=== PATIENT | female | born 1955 | race African-American/Black ===

== ENCOUNTER 2019-03-31 08:06 | Emergency (ER) | payer MEDICARE, OTHER ==
[~2019-03-31] VITALS: Ht 170.2 cm; Wt 106.6 kg
[~2019-03-31 08:06] MED LIST: ASPIRIN81 MG ORAL; FUROSEMIDE20 M1 ORAL; LOPRESSOR25 M1 ORAL; ZESTRIL10 MG ORAL
--- NOTE | 2019-03-31 08:15 | Emergency Room Report ---
History of Present Illness General Chief Complaint: Generalized Weakness Present Illness HPI 63-year-old female possible history of hypertension, hyperlipidemia, giant cell arteritis diagnosed by biopsy, presents with 2 days of weakness, headache, headache not sudden, gradual in onset, associated with her giant cell arteritis , she states all the symptoms started when she started taking Tocilizumab she denies any alleviating factors, no radiation of pain, she states the pain is all over her head. Patient states she does not know why she was transferred here, she states she want to go to [facility], she no longer wants to obtain care at [facility] she stated that she called 911 because she did not want to bother the other person in her household because he had to go to work. Patient denies any chest pain, shortness of breath, nausea vomiting, abdominal pain Allergies: Coded Allergies: No Known Allergies (Unverified , 12/16/13) Patient History Past Medical History: see triage record Reviewed Nursing Documentation: PMH: Agreed; PSxH: Agreed Nursing Documentation-PMH Hx Hypertension: Yes - multinodular goiter, DVT Hx Cancer: No Hx Gastrointestinal Problems: No Review of Systems Constitutional: Reports: weakness; Denies: chills, fever Eye: Denies: blurred vision, double vision ENT: Denies: throat pain, nasal discharge Respiratory: Denies: cough, shortness of breath Cardiovascular: Denies: chest pain, palpitations Gastrointestinal: Denies: abdominal pain, diarrhea, nausea, vomiting Genitourinary: Denies: pain Musculoskeletal: Reports: back pain; Denies: muscle pain Skin: Denies: rash, lesions Neurological: Reports: headache; Denies: focal weakness Hematologic/Lymphatic: Denies: easy bleeding, easy bruising All Other Systems: negative except mentioned in HPI Physical Exam Vital Signs Date Time Temp Pulse Resp B/P (MAP) Pulse Ox O2 Delivery O2 Flow Rate FiO2 03/31/19 07:57 98.4 77 18 133/87 (102) 100 Room Air Sp02 EP Interpretation: reviewed, normal General Appearance: well appearing, no apparent distress, alert Head: normocephalic, atraumatic Eyes: bilateral eye PERRL, bilateral eye EOMI ENT: uvula midline, moist mucus membranes Neck: supple, thyroid normal, supple/symm/no masses Respiratory: lungs clear, no respiratory distress, no retraction, no accessory muscle use Cardiovascular #1: normal peripheral pulses, regular rate, rhythm, no edema, no gallop, no murmur Gastrointestinal: non tender, soft, no guarding, no rebound Musculoskeletal: normal inspection Neurologic: alert, oriented x3 Psychiatric: mood/affect normal Skin: no rash, warm/dry Medical Decision Making Diagnostic Impression: Primary Impression: Episode of generalized weakness Additional Impression: Medication side effect ER Course 63-year-old female presents with generalized weakness after taking Tocilizumab, which is an infusion she started at [facility], will order diagnostic labs, EKG, chest x-ray, CT brain, to rule out acute pathology, patient most likely with a medication side effect as well as progression of her giant cell arteritis in which she needs to follow-up with rheumatology, patient states that she will follow-up with her slot floorperson at [facility], and has an appointment Patient states that she wants to be transported to [facility], she states she will see her slot floorperson there, patient counseled that we cannot do a hospital to hospital transfer for a chronic condition, patient currently has no acute processes occurring, patient has a negative CT brain, negative chest x-ray , return precautions were discussed Return precautions discussed Laboratory Tests Test 03/31/19 08:27 03/31/19 09:15 White Blood Count 6.2 K/UL (4.8-10.8) Red Blood Count 5.73 M/UL (4.20-5.40) H Hemoglobin 12.5 G/DL (12.0-16.0) Hematocrit 40.5 % (37.0-47.0) Mean Corpuscular Volume 71 FL (80-99) L Mean Corpuscular Hemoglobin 21.9 PG (27.0-31.0) L Mean Corpuscular Hemoglobin Concent 31.0 G/DL (32.0-36.0) L Red Cell Distribution Width 15.0 % (11.6-14.8) H Platelet Count 266 K/UL (150-450) Mean Platelet Volume 6.7 FL (6.5-10.1) Neutrophils (%) (Auto) 58.9 % (45.0-75.0) Lymphocytes (%) (Auto) 32.0 % (20.0-45.0) Monocytes (%) (Auto) 7.2 % (1.0-10.0) Eosinophils (%) (Auto) 0.9 % (0.0-3.0) Basophils (%) (Auto) 1.1 % (0.0-2.0) Sodium Level 143 MMOL/L (136-145) Potassium Level 3.7 MMOL/L (3.5-5.1) Chloride Level 107 MMOL/L (98-107) Carbon Dioxide Level 29 MMOL/L (21-32) Anion Gap 7 mmol/L (5-15) Blood Urea Nitrogen 16 mg/dL (7-18) Creatinine 1.1 MG/DL (0.55-1.30) Estimate Glomerular Filtration Rate > 60 mL/min (>60) Glucose Level 97 MG/DL (74-106) Calcium Level 9.2 MG/DL (8.5-10.1) Total Bilirubin 0.3 MG/DL (0.2-1.0) Aspartate Amino Transferase (AST) 26 U/L (15-37) Alanine Aminotransferase (ALT) 34 U/L (12-78) Alkaline Phosphatase 99 U/L (46-116) Total Creatine Kinase 74 U/L (26-308) Creatine Kinase MB < 0.5 NG/ML (0.0-3.6) Creatine Kinase MB Relative Index 0.6 Troponin I 0.000 ng/mL (0.000-0.056) Total Protein 7.1 G/DL (6.4-8.2) Albumin 3.4 G/DL (3.4-5.0) Globulin 3.7 g/dL Albumin/Globulin Ratio 0.9 (1.0-2.7) L Urine Color Pale yellow Urine Appearance Clear Urine pH 6.5 (4.5-8.0) Urine Specific [place] 1.010 (1.005-1.035) Urine Protein Negative (NEGATIVE) Urine Glucose (UA) Negative (NEGATIVE) Urine Ketones Negative (NEGATIVE) Urine Blood Negative (NEGATIVE) Urine Nitrite Negative (NEGATIVE) Urine Bilirubin Negative (NEGATIVE) Urine Urobilinogen Normal MG/DL (0.0-1.0) Urine Leukocyte Esterase 2+ (NEGATIVE) H Urine RBC 0-2 /HPF (0 - 2) Urine WBC 2-4 /HPF (0 - 2) Urine Squamous Epithelial Cells Few /LPF (NONE/OCC) Urine Bacteria Occasional /HPF (NONE) Urine Mucus Few /LPF (NONE/OCC) H EKG Diagnostic Results EKG Time: 08:14 EP Interpretation: Normal sinus rhythm, QTC 466, no acute ST elevations, normal axis Rate: normal Rhythm: NSR ST Segments: no acute changes Chest X-Ray Diagnostic Results Chest X-Ray Diagnostic Results : Chest X-Ray Ordered: Yes # of Views/Limited/Complete: 1 View Indication: Other - Weakness EP Interpretation: Yes Interpretation: no consolidation, no acute cardiopulmonary disease, other - slight loss of the left costophrenic angle Impression: No acute disease Last Vital Signs Date Time Temp Pulse Resp B/P (MAP) Pulse Ox O2 Delivery O2 Flow Rate FiO2 03/31/19 07:57 98.4 77 18 133/87 (102) 100 Room Air Disposition: HOME, SELF-CARE Condition: Stable Referrals: [facility] Patient Instructions: Weakness Additional Instructions: The patient was provided with discharge instructions, notified to follow-up with a primary care doctor and or specialist in the next 24-48 hours, and to return to the ED if they have worsening of their symptoms. Please note that this report is being documented using [email or web address] technology. This can lead to erroneous entry secondary to incorrect interpretation by the dictating instrument. Andrey Burciaga M.D. Mar 31, 2019 08:15
--- NOTE | 2019-03-31 08:20 | NUR ---
ED Nurse Note:pt. was BIBA from home with c/o headache and general weakness, pt. is A/Ox4 ambulatory, VSS, blood was sent to labs, pt. was given oral fluids and CT head done
[2019-03-31] MEDS ORDERED: FOSAMAX70 MG ORAL (08:25)
[2019-03-31] MEDS ORDERED: CARVEDILOL12.5 MG ORAL (08:25)
[2019-03-31] MEDS ORDERED: PANTOPRAZOLE SO40 MG ORAL (08:25)
[2019-03-31] MEDS ORDERED: XARELTO10 MG ORAL (08:25)
[2019-03-31] MEDS ORDERED: SPIRONOLACTONE100 MG ORAL (08:25)
[2019-03-31] MEDS ORDERED: ATORVASTATIN CA40 MG ORAL (08:25)
[2019-03-31] MEDS ORDERED: PREDNISONE10 MG ORAL (08:25)
[2019-03-31 08:33] VITALS: BP 133/87
[2019-03-31 08:40] LABS: BASOPHILS % (AUTO) 1.1 % (0.0-2.0); EOSINOPHILS % (AUTO) 0.9 % (0.0-3.0); HEMATOCRIT 40.5 % (37.0-47.0); HEMOGLOBIN 12.5 G/DL (12.0-16.0); MEAN CORPUSCULAR VOLUME 71 FL (80-99); MONOCYTES % (AUTO) 7.2 % (1.0-10.0); NEUTROPHILS % (AUTO) 58.9 % (45.0-75.0); PLATELET COUNT 266 K/UL (150-450); RED BLOOD COUNT 5.73 M/UL (4.20-5.40); WHITE BLOOD COUNT 6.2 K/UL (4.8-10.8)
[2019-03-31 08:52] LABS: ANION GAP 7 mmol/L (5-15); BLOOD UREA NITROGEN 16 mg/dL (7-18); CALCIUM 9.2 MG/DL (8.5-10.1); CARBON DIOXIDE 29 MMOL/L (21-32); CHLORIDE 107 MMOL/L (98-107); CREATININE 1.1 MG/DL (0.55-1.30); POTASSIUM 3.7 MMOL/L (3.5-5.1); SODIUM 143 MMOL/L (136-145)
--- NOTE | 2019-03-31 09:16 | Diagnostic Imaging Report ---
Indication: Headache Technique: Contiguous 5 mm thick transaxial imaging of the head obtained in a Siemens Sensation [address] scanner. Soft tissue and bone windows generated. Automatic Exposure Control was utilized. Total Dose length Product (DLP): 1467.[address] Dose Index Volume (CTDIvol): 70.38 mGy Comparison: none Findings: There is mild prominence of the ventricles, basal cisterns, and cerebral sulci consistent with atrophy. Mild, nonspecific, white matter hypoattenuation is noted throughout the brain consistent with chronic small vessel disease. There is no midline shift, edema, acute hemorrhage, mass effect, or abnormal extra-axial fluid collections. Bones are unremarkable. There is opacification of the left maxillary sinus. Impression: No acute intracranial bleed, mass effect or edema. Mild atrophy of the brain. Nonspecific white matter hypoattenuation probably due to chronic small vessel disease. Sinusitis The CT scanner at [facility] is accredited by the [employer] and the scans are performed using dose optimization techniques as appropriate to a performed exam including Automatic Exposure control.
[2019-03-31 09:19] LABS: ALANINE AMINOTRANSFERASE 34 U/L (12-78); ALBUMIN 3.4 G/DL (3.4-5.0); ALBUMIN/GLOBULIN RATIO 0.9 (1.0-2.7); ALKALINE PHOSPHATASE 99 U/L (46-116); ASPARTATE AMINO TRANSFERASE 26 U/L (15-37); BILIRUBIN,TOTAL 0.3 MG/DL (0.2-1.0); CKMB < 0.5 NG/ML (0.0-3.6); CREATINE KINASE 74 U/L (26-308)
[2019-03-31 09:25] LABS: APPEARANCE,URINE CLEAR; BILIRUBIN, URINE NEGATIVE (NEGATIVE); COLOR,URINE PALE YELLOW; GLUCOSE, URINE (UA) NEGATIVE (NEGATIVE); KETONES,URINE NEGATIVE (NEGATIVE); LEUKOCYTE ESTERASE ,URINE 2+ (NEGATIVE); NITRITE,URINE NEGATIVE (NEGATIVE); PH,URINE 6.5 (4.5-8.0); PROTEIN,URINE NEGATIVE (NEGATIVE); UROBILINOGEN,URINE NORMAL MG/DL (0.0-1.0)
--- NOTE | 2019-03-31 09:30 | NUR ---
ED Nurse Note:pt. c/o headache pain was offered pain meds but she refused, she also was offered food but only took juice, continue to monitor
[2019-03-31 10:37] VITALS: BP 106/70
--- NOTE | 2019-03-31 11:28 | NUR ---
ED Nurse Note: Dr. Razo at bedside and spoke to patient and all questions were answered.
--- NOTE | 2019-03-31 11:35 | NUR ---
ER DISCHARGE NOTE: Patient is cleared to be discharged per ERMD, pt is aox4, on room air, with stable vital signs. pt was given dc and instructions, she refused to sign them pt id band and iv site removed without complications. pt is able to ambulate with steady gait. pt took all belongings.
[2019-03-31 11:36] VITALS: BP 106/70
--- NOTE | 2019-03-31 11:51 | Diagnostic Imaging Report ---
Indication: Dyspnea Comparison: December 20, 2013 A single view chest radiograph was obtained. Findings: Cardiomediastinal appearance is within normal limits for age. The lungs are clear. Pulmonary vascularity is appropriate. The diaphragmatic contour is smooth and costophrenic angles are sharp. No pleural effusions are identified. The bones are unremarkable. Impression: No acute findings
== END 2019-03-31 11:39 | disposition home or self-care (01) ==
LOC: EDBD 08:06 → EMR 08:24
DX: R53.1 Weakness (principal); R51 Headache; T50.995A Adverse effect of other drugs, medicaments and biological substances, initial encounter; Y92.9 Unspecified place or not applicable; I10 Essential (primary) hypertension; E04.2 Nontoxic multinodular goiter; Z86.718 Personal history of other venous thrombosis and embolism
CPT/HCPCS: 36415; 70450; 71045; 80053; 81003; 82550; 82553; 84484; 85025; 93005; 99284